=== PATIENT | male | born 1985 | race Two or more races ===

== ENCOUNTER 2024-12-10 17:27 | Emergency (ER) | payer SELFPAY ==
[2024-12-10 17:35] VITALS: BP 184/93; PULSE 67; RESP 18; TEMP 36.7; O2SAT 96; BMI 25.2
--- NOTE | 2024-12-10 18:06 | PD.EDWOUND ---
ED Wound/Laceration-RME/HPI General Chief Complaint: Wound/Laceration Stated Complaint: LACERATION TO RIGHT HAND WHILE AT WORK Time Seen by Provider: 12/10/24 17:29 Arrival date/time: 12/10/24 17:27 RME / HPI RME / HPI narrative: 39-year-old patient with history of diabetes presents to the emergency department with complaint of laceration to right arm while at work. Patient states he cut himself on the railing. He denies numbness and tingling to distal right fingers. He rates his pain currently as a 7 out of 10 that is worse with palpation of the affected area. Patient states that he is up-to-date on his tetanus. Related Data Home Medications ?Medication ?Instructions ?Recorded ?Confirmed aspirin 81 mg tablet 81 mg PO QDAY 07/23/23 07/26/23 lisinopril 5 mg tablet 10 mg PO QDAY 07/23/23 07/26/23 metformin 500 mg tablet 500 mg PO QDAY 07/23/23 07/26/23 Held on 07/26/23. Instructions: Resume on 07/28/23. Hold for 48 hrs then may resume. metoprolol succinate 25 mg 50 mg PO QDAY 07/23/23 07/26/23 tablet,extended release 24 hr atorvastatin 40 mg tablet 40 mg PO QPM 07/26/23 07/26/23 clopidogrel 75 mg tablet (Plavix) 75 mg PO QDAY 07/26/23 07/26/23 nitroglycerin 0.4 mg sublingual 0.4 mg buccal PRN PRN chest pain 07/26/23 07/26/23 tablet Previous Rx's ?Medication ?Instructions ?Recorded amoxicillin 500 mg capsule 500 mg PO Q8H 10 days #30 caps 12/10/24 Allergies Allergy/AdvReac Type Severity Reaction Status Date / Time No Known Allergies Allergy Verified 12/10/24 17:29 Review of Systems Review of Systems Systems Reviewed: All systems reviewed, normal except as documented Constitutional Constitutional: Reports system reviewed and no additional complaints, except as documented Cardiovascular Cardiovascular: Reports system reviewed and no additional complaints, except as documented Respiratory Respiratory: Reports system reviewed and no additional complaints, except as documented Musculoskeletal Musculoskeletal: Reports system reviewed and no additional complaints, except as documented Integumentary/Breasts Skin/Breast: Reports system reviewed and no additional complaints, except as documented ED Exam General General appearance: Present alert and in no apparent distress Head Head exam: Present atraumatic and normocephalic ENT ENT exam: Present normal exam and normal oropharynx Neck Neck exam: Present normal inspection Chest Chest inspection: Present normal inspection Respiratory Respiratory exam: Present normal lung sounds bilaterally Expanded Upper Extremity Exam Hand L/R front image:  1. laceration Neuromotor exam: Normal wrist extension, thumb opposition and thumb IP flexion Neurosensory exam: Normal radial nerve, ulnar nerve, median nerve and 2-point discrimination Vascular exam: Normal capillary refill, radial pulse, ulnar pulse and brachial pulse Course Quality Measures none Orders Category Date Time Status Lidocaine 1% 20 ml [Xylocaine 1% 20 ML] Med 12/10/24 17:45 Discontinued 20 ml INFL X1 ONE Vital Signs Vital signs: Vital Signs Temperature 98.1 F 12/10/24 17:35 Pulse Rate 67 12/10/24 17:35 Respiratory Rate 18 12/10/24 17:35 Blood Pressure 184/93 H 12/10/24 17:35 Pulse Oximetry (%) 96 12/10/24 17:35 Oxygen Delivery Method Room Air 12/10/24 17:35 Procedures -ED Laceration Laceration 1: Site: hand Side (If applicable): right Size (cm): 10 Description: linear Depth: simple, single layer Local Anesthetic: lidocaine 1% Amount of anesthesia used (mL): 10 Skin layer closed with: other (ethilon) Size (cm): 3-0 Number of sutures: 9 Wound / Laceration MDM Narrative MDM Narrative:: 39-year-old patient presents emergency department with laceration to right hand sutures were placed and patient is stable to DC home given patient's history of diabetes patient will be DC'd home with oral antibiotic. Patient data External records reviewed:: None Clinical information provided by:: patient Social determinants that could affect healthcare access:: none Patient has the following chronic illnesses:: na How is presenting disease/condition affected by chronic disease/condition?: no chronic disease Evaluation data The following diagnostics were reviewed and interpreted by me:: other (specify) Lab and/or radiology exams considered but not ordered:: na Interpretation Summary: na Medications / Prescriptions Medications or Prescriptions considered but not ordered:: rx considered and ordered Medication administrations:: Medication Administration History Discontinued Medications Lidocaine HCl (Lidocaine Hcl 1% 20 Ml Vial) 20 ml INFL X1 ONE Stop: 12/10/24 17:46 lidocaine sub q Consultations Consultation(s) initiated? (list below): No Diagnosis Wound Differential Diagnosis: laceration, abscess, abrasion and avulsion of skin Most likely diagnosis given after review of the tests above:: laceration Admission Indicated Admission indicated?: not indicated Admission Request Was there a request for admission?: No Disposition Plan Disposition Plan: Discharge Discharge Attestation Discharge Attestation: The patient and all family members were given an opportunity to ask questions and understood the discharge instructions. Discharge instructions specifically effects, indications for sooner follow up or return to the emergency department, and the expected course of current diagnosis. Patient condition: Stable Discharge Plan Plan Patient Disposition: HOME (Self Care) Patient condition on transfer: Stable Prescriptions/Referrals Prescriptions/Med Rec: New amoxicillin 500 mg capsule 500 mg PO Q8H 10 Days Qty: 30 0RF No Action metformin 500 mg Tablet 500 mg PO QDAY lisinopril 5 mg Tablet 10 mg PO QDAY metoprolol succinate 25 mg Tablet Extended Release 24 Hr 50 mg PO QDAY aspirin 81 mg Tablet 81 mg PO QDAY atorvastatin 40 mg Tablet 40 mg PO QPM clopidogrel [Plavix] 75 mg Tablet 75 mg PO QDAY nitroglycerin 0.4 mg Tablet, Sublingual 0.4 mg BUCCAL PRN PRN (Reason: chest pain) Referrals: No Primary/Family,Physician [Primary Care Provider] - In 1 week Problem List Clinical Impression: Laceration, Hand laceration Patient/Caregiver Discharge Instructions Education Materials: ED Laceration, Hand: All Closures Additional Instructions: have sutures removed in 7-10 days Print Language: Lebanese Stand Alone Forms: Nela Award Info., Patient Portal Info Letter
[2024-12-10] MEDS: LIDOCAINE HCL 1% 20 ML VIAL INFL (18:11)
== END 2024-12-10 18:29 | disposition home or self-care (01) ==
PROVIDERS: Emergency Provider Emergency Medicine
DX: S61.411A Laceration without foreign body of right hand, initial encounter (principal); W45.8XXA Other foreign body or object entering through skin, initial encounter; Y99.0 Civilian activity done for income or pay; E11.9 Type 2 diabetes mellitus without complications
CPT/HCPCS: 12004; 99283; J3490